=== PATIENT | male | born 1990 | race Caucasian/White ===

== ENCOUNTER 2018-04-23 08:58 | Emergency (ER) | payer OTHER ==
[2018-04-23] MEDS: TETRACAINE 0.5% OPHTH SOLN 4ML OS (09:15)
[2018-04-23] MEDS: ERYTHROMYCIN OPHTH OINT OS (09:43)
== END 2018-04-23 09:44 | disposition home or self-care (01) ==
LOC: M ED 08:58
DX: S05.02XA Injury of conjunctiva and corneal abrasion without foreign body, left eye, initial encounter (principal); W22.8XXA Striking against or struck by other objects, initial encounter; Y92.89 Other specified places as the place of occurrence of the external cause
CPT/HCPCS: 99282

== ENCOUNTER → 2019-01-17 | Outpatient (CLI) | payer OTHER ==
[~2019-01-17] MED LIST: ERYTOIN8 OS
--- NOTE | 2019-01-17 15:18 | REP ---
RIGHT LOWER EXTREMITY DOPPLER VENOUS ULTRASOUND: 01/17/2019. Clinical history: Knee pain, evaluate for DVT. Comparison: None. Technique: The deep venous system of the right lower extremity is evaluated with calloway scale imaging, compression ultrasound, color imaging and duplex Doppler interrogation. Examination from the groin through the popliteal fossa into the proximal calf. Findings: There is full compressibility from the common femoral vein in the inguinal region through the popliteal vein. Color imaging confirms patency throughout the course of the deep venous system. There is respiratory variation and augmented flow at all levels. No abnormal fluid collection seen. Impression: 1. No Doppler venous ultrasound evidence of DVT in the right lower extremity. Electronically Signed by Viral Aldana MD 01/17/2019 03:10 P
== END ==
LOC: M RAD 14:19
PROVIDERS: ATTEND Physician Assistant
DX: M79.89 Other specified soft tissue disorders (principal)

== ENCOUNTER → 2019-03-22 | Outpatient (CLI) | payer OTHER ==
[~2019-03-22] MED LIST changes: +CONRAY-43 43% 50ML VIAL (Q9960) As Ordered ONE; +PROHANCE 279.3MG/ML 5ML VIAL (A9576) As Ordered ONE
--- NOTE | 2019-03-22 10:10 | REP ---
MR ARTHROGRAM LEFT SHOULDER: TECHNIQUE: Axial T2 fat sat, coronal oblique T1, T2 fat sat, post arthrogram axial T1 fat sat, proton density, coronal oblique T1 fat sat, T2 sat, sagittal oblique T2 fat sat, ABER T1 fat sat. There is ill-defined high signal on T2-weighted images involving the supraspinatus tendon compatible with a moderate degree of tendinopathy/tendonitis. I do not see evidence of a rotator cuff tendon tear. Acromion is downward sloping. I do not see significant hypertrophic changes at the acromioclavicular joint. Acromion is type 1. Biceps tendon is within the bicipital groove with no tenosynovitis. There is no Hill-Sachs deformity. The deltoid muscle is unremarkable. Biceps labral complex is intact. I do not see evidence of a labral tear. There is no paralabral cyst. There is normal amount of joint fluid. Mild subchondral cystic changes are seen in the superolateral humeral head. IMPRESSION: Moderate supraspinatus tendinopathy/tendonitis. Downward sloping of the acromion, which is type 1. No evidence of a labral tear. Mild subchondral cystic changes humeral head. Electronically Signed by Alexandro Miner MD 03/22/2019 11:11 A
--- NOTE | 2019-03-22 11:00 | REP ---
Examination requested: Left shoulder arthrogram Reason For Patient Visit: Left shoulder pain ] Reason For Exam/Comment: Left shoulder pain Procedure: Left shoulder arthrogram The procedure was performed by MEGAN Yang, under the direct supervision of Dr. Miner The benefits and risks including but not limited to pain, infection, bleeding and anaphylaxis were explained to the patient and informed consent was obtained both verbally and written. Directly prior to the start of the procedure, a formal time was done in the exam room. Technique: The left glenohumeral was localized using fluoroscopic guidance. The skin was prepped and draped in the usual sterile fashion. 5 mL of 1% lidocaine was used as a local anesthetic. Using fluoroscopic guidance a 22-gauge spinal needle was inserted and advanced to the left glenohumeral joint space . 1 mL of Conray 43 was injected to verify needle placement. A 12 mL solution containing 20 ml of sterile saline and 0.15 ml of ProHance was injected into the joint. The needle was removed and hemostasis was achieved. The patient tolerated the procedure well and there were no immediate complications. 0.3 minutes of fluoroscopy time was utilized for this procedure. Reviewed by MEGAN Chao 03/22/2019 08:33 A Electronically Signed by Alexandro Miner MD 03/22/2019 10:51 A
== END ==
LOC: M RADPRO 06:35
PROVIDERS: ATTEND Physician Assistant
DX: M75.22 Bicipital tendinitis, left shoulder (principal)
CPT/HCPCS: 23350; 73223; 77002; A9576; Q9960

== ENCOUNTER 2019-10-19 10:51 | Emergency (ER) | payer OTHER, SELFPAY ==
[~2019-10-19] VITALS: Ht 172.7 cm; Wt 109.1 kg
[~2019-10-19 10:51] MED LIST changes: -CONRAY-43 43% 50ML VIAL (Q9960) As Ordered ONE; -PROHANCE 279.3MG/ML 5ML VIAL (A9576) As Ordered ONE
[2019-10-19 10:52] VITALS: BP 145/90
== END 2019-10-19 13:50 | disposition left against medical advice (07) ==
LOC: M ED 10:51
DX: Z53.21 Procedure and treatment not carried out due to patient leaving prior to being seen by health care provider (principal)

== ENCOUNTER → 2021-04-07 | Outpatient (CLI) | payer OTHER ==
--- NOTE | 2021-04-10 16:06 | REP ---
INDICATION: PATELLOFEMORAL DISORDERS, MEDIAL MENISCUS INJURY. COMPARISON: MRI 08/21/2018 Andrei lukasz. TECHNIQUE: Multiple sequences obtained in the axial, coronal and sagittal planes. FINDINGS: Menisci: Intact, no tear. Cruciate ligaments: Intact. Collateral ligaments: Intact. Extensor mechanism/patellar retinacula: Intact. Cartilage: Mild cartilaginous thinning is seen along the medial patellar facet, with significant improvement in the irregularity of the cartilaginous surfaces compared to the prior study. There is otherwise mild global chondromalacia without evidence of focal cartilaginous defect. Bone marrow: There is mild subcortical marrow edema in the anterior tibial plateau adjacent to the insertion of the anterior cruciate ligament. Joint fluid: There is a small joint effusion. Popliteal region: No cyst. IMPRESSION: Mild global chondromalacia. No focal osteochondral defect. Mild subcortical marrow edema in the anterior tibial plateau adjacent to the insertion of the anterior cruciate ligament. Small joint effusion. <Electronically signed by Alexandro Miner > 04/10/21 2500
== END ==
LOC: M PLARAD 11:05
PROVIDERS: ATTEND Orthopaedic Surgery Sports Medicine
DX: M94.261 Chondromalacia, right knee (principal); M22.2X1 Patellofemoral disorders, right knee; S83.241D Other tear of medial meniscus, current injury, right knee, subsequent encounter

== ENCOUNTER → 2024-03-19 | Outpatient (CLI) | payer OTHER | LOC: M PLAIMG 14:42 | PROVIDERS: ATTEND Physician Assistant Medical | DX: M54.59 Other low back pain (principal) ==

== ENCOUNTER → 2024-12-07 | Outpatient (CLI) | payer OTHER | LOC: M SLEEP 20:00 | PROVIDERS: ATTEND Physician Assistant Medical | DX: G47.33 Obstructive sleep apnea (adult) (pediatric) (principal) ==

== ENCOUNTER → 2025-06-26 | Outpatient (CLI) | payer OTHER | LOC: M SLEEP 20:00 | PROVIDERS: ATTEND Physician Assistant Medical | DX: G47.33 Obstructive sleep apnea (adult) (pediatric) (principal) ==